=== PATIENT | female | born 1935 | race Caucasian/White ===

== ENCOUNTER → 2020-03-22 | Outpatient (CLI) | payer OTHER ==
--- NOTE | 2020-03-23 10:11 | RADIOLOGY REPORT (SQ) ---
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 RADIONUCLIDE AND DOSE: 10.6 mCi F18 FDG The route of agent administration: Intravenous FASTING BLOOD SUGAR: 88 mg/dl CONTRAST TYPE AND DOSE: No CT contrast given. TECHNIQUE: Blood glucose level was verified. Above dose of FDG was injected intravenously. 2-D seg mented attenuation correction images were obtained from the base of the skull to the midthighs. Nonc ontrast CT images were obtained for attenuation correction and fusion with emission images. CT image s were performed without oral or intravenous contrast and are not sensitive for parenchymal lesions. A series of overlapping emission PET images were obtained. Images reviewed and manipulated at [facility] work station by the radiologist. Images stored on PACS. LIMITATIONS: None. FINDINGS: HEAD AND NECK: No areas of abnormal metabolic activity in the soft tissues of the head and neck. CHEST: There are confluent nodules in the right anterolateral chest wall, around the mastectomy surgi trevon bed, that demonstrate avid FDG uptake with maximum SUVs that range from 3 to 5.3. There are no o ther areas of abnormal metabolic activity in the chest. ABDOMEN AND PELVIS: The liver demonstrates heterogeneous nonfocal FDG uptake with an average SUV of 1 .9. There is expected physiologic activity throughout the gastrointestinal and genitourinary tracts. There are no areas of abnormal metabolic activity in the abdomen and pelvis. PROXIMAL LOWER EXTREMITIES: No areas of abnormal metabolic activity in the soft tissues of the lower extremities. BONES: The increased symmetric uptake around the glenohumeral joints is degenerative in etiology. ADDITIONAL CT FINDINGS: The ascending thoracic aorta measures 3.9 x 3.9 cm. The left ventricle is en larged. There is moderate to severe atherosclerotic calcification of the coronary arteries and sever e atherosclerotic calcification of the mitral annulus. There is no pericardial effusion. The 13 mm calcification in the right adnexum (image 168 of series 3) could represent a fibroid. There is no ac pebbles intra-abdominal abnormality. OTHER: No other findings. IMPRESSION: Confluent nodules in the right anterolateral chest wall, around the surgical surgical be d, that demonstrate avid FDG uptake and are concerning for tumor recurrence. There is no metabolic e vidence of metastases. TECHNICAL DOCUMENTATION: JOB ID: [id number] 2010 [employer]- All Rights Reserved Reading location - IP/workstation name: [email or web address]
== END ==
LOC: RAD 12:04
PROVIDERS: ATTEND Emergency Medicine
DX: D05.11 Intraductal carcinoma in situ of right breast (principal); Z90.11 Acquired absence of right breast and nipple
CPT/HCPCS: 78815; A9552